=== PATIENT | female | born 1950 | race Caucasian/White ===

== ENCOUNTER → 2021-01-02 15:18 | Outpatient (CLI) | payer MEDICARE, OTHER, SELFPAY ==
[2021-01-02] MEDS: DENOSUMAB 60 MG/ML SC (15:41)
== END ==
PROVIDERS: Referring Provider Internal Medicine Endocrinology, Diabetes & Metabolism; Visit Provider Internal Medicine Endocrinology, Diabetes & Metabolism
DX: M81.8 Other osteoporosis without current pathological fracture (principal)
CPT/HCPCS: 96372; J0897

== ENCOUNTER → 2021-07-28 | Outpatient (CLI) | payer MEDICARE, OTHER, SELFPAY ==
[2021-07-28 13:46] VITALS: RESP 16
[2021-07-28] MEDS: DENOSUMAB 60 MG/ML SC (13:48)
== END | disposition home or self-care (01) ==
LOC: MEDOUTP 13:37
PROVIDERS: Referring Provider Internal Medicine Endocrinology, Diabetes & Metabolism; Visit Provider Internal Medicine Endocrinology, Diabetes & Metabolism
DX: M81.8 Other osteoporosis without current pathological fracture (principal)
CPT/HCPCS: 96372; J0897

== ENCOUNTER → 2022-02-09 | Outpatient (CLI) | payer MEDICARE, OTHER, SELFPAY ==
[2022-02-09] MEDS: DENOSUMAB 60 MG/ML SC (11:57)
--- NOTE | 2022-02-09 12:01 | NURSING ---
Patient refused vital signs to be obtained prior to prolia injection. States it will be charged more as a wellness visit and does not want her vital signs obtained.
== END | disposition home or self-care (01) ==
LOC: MEDOUTP 11:38
PROVIDERS: Referring Provider Internal Medicine Endocrinology, Diabetes & Metabolism; Visit Provider Internal Medicine Endocrinology, Diabetes & Metabolism
DX: M81.8 Other osteoporosis without current pathological fracture (principal)
CPT/HCPCS: 96372; J0897

== ENCOUNTER 2022-08-23 13:55 | Outpatient (CLI) | payer MEDICARE, OTHER, SELFPAY ==
[2022-08-23 14:07] VITALS: BMI 21.5
[2022-08-23] MEDS: DENOSUMAB 60 MG/ML SC (14:13)
== END 2022-08-23 13:56 | disposition home or self-care (01) ==
LOC: MEDOUTP 13:57
PROVIDERS: Referring Provider Internal Medicine Endocrinology, Diabetes & Metabolism; Visit Provider Internal Medicine Endocrinology, Diabetes & Metabolism
DX: M81.8 Other osteoporosis without current pathological fracture (principal)
CPT/HCPCS: 96372; J0897

== ENCOUNTER 2023-04-22 12:56 | Outpatient (CLI) | payer MEDICARE, OTHER, SELFPAY ==
--- OUTSIDE RECORDS SUMMARY | 2023-04-22 13:21 | XMS RPT_ITS | CCD ---
Author Name Unknown Address [address] [place] [address] Organization [facility] Care Team Providers Care Blocker Polishing Name Role Phone Holli Reza Primary Care Provider HOLLI REZA Primary Care Unavailable HOLLI REZA Primary Care Unavailable SIM MCKENZIE Attending Unavailable HOLLI REZA Primary Care Unavailable HOLLI REZA Primary Care Unavailable HOLLI REZA Primary Care Unavailable Allergies Allergy Classification Reported Allergen(s) Allergy Type Date of Onset Reaction(s) Facility (14 sources) Acetaminophen; Translations: [ACETAMINOPHEN] Drug Allergy 06-23-19 14 [place], [place] (14 sources) carvedilol; Translations: [CARVEDILOL] Drug Allergy 06-13-19 15 [place] (1 source) Cephalothin Drug Allergy 08-04-19 17 [place] (14 sources) chlorproMAZINE; Translations: [CHLORPROMAZINE] Drug Allergy 08-04-19 17 [place] (1 source) metroNIDAZOLE Drug Allergy 06-13-19 15 [place] (2 sources) Penicillins; Translations: [PENICILLINS] Propensity to adverse reactions to drug 09-11-19 06 [place] (14 sources) Promethazine; Translations: [PROMETHAZINE HCL] Drug Allergy 04-30-19 16 Other (See Comments), Unknown [place] (1 source) Sulfamethoxazole / Trimethoprim Drug Allergy 12-07-19 18 [place] (13 sources) Cephalothin; Translations: [KEFLIN] Drug Allergy 08-04-19 17 [facility] (13 sources) metroNIDAZOLE; Translations: [METRONIDAZOLE HCL] Drug Allergy 06-13-19 15 [facility] (13 sources) nebivolol; Translations: [NEBIVOLOL] Drug Allergy 06-11-19 21 Swelling [facility] (2 sources) Penicillins Drug Intolerance 09-11-19 [facility] Work Phone: (10 sources) Penicillins Drug Intolerance 09-11-19 [facility] Work Phone: Medications Current Medications Medication Drug Class(es) Dates Sig (Normalized) Sig (Original) amLODIPine 10 mg oral tablet (1 source) Dihydropyridine Calcium Channel Rama Start: 07-13-2017 amLODIPine (NORVASC) 10 MG tablet Take 10 mg by mouth 0 07/13/2017 Active Calcium Citrate-Vitamin D3 1000-400 LIQD (1 source) Calcium Citrate-Vitamin D3 1000-400 LIQD 1 ml denosumab 60 mg/ml prefilled syringe (13 sources) RANK Ligand Inhibitor Start: 08-21-2020 End: 08-15-2021 denosumab 60 mg injection (PROLIA) Completed/Discontinued Medications Medication Drug Class(es) Dates Sig (Normalized) Sig (Original) CALCIUM CITRATE/VITAMIN D3 (CALCIUM CITRATE + ORAL) (12 sources) take 1 tablet by jerson th once daily CALCIUM CITRATE/VITAMIN D3 (CALCIUM CITRATE + ORAL) Take 1 tablet by mouth once daily. 0 Active Problems Active Problems Problem Classification Problem Date Documented Da te Episodic/Chronic Aortic; peripheral; and visceral artery aneurysms (12 sources) Aneurysm; Translations: [Aneurysm of unspecified site] Onset: 06-22-2013 06-22-2013 Chronic Chronic kidney disease (8 sources) Chronic kidney disease; Translations: [Chronic kidney disease, unspecified] Onset: 01-26-2022 Chronic Chronic kidney disease (1 source) Chronic kidney disease; Translations: [Chronic kidney disease (CKD) stage G3a/A1, moderately decreased glomerular filtration rate (GFR) between 45-59 mL/min/1.73 square meter and albuminuria creatinine ratio less than 30 mg/g (HCC)] Onset: 10-15-2022 Essential hypertension (20 sources) Benign essential hypertension; Translations: [Essential (primary) hypertension] Onset: 04-06-2017 Chronic Hypertension with complications and secondary hypertension (2 sources) Hypertensive heart AND renal disease; Translations: [Hypertensive heart and chronic kidney disease with heart failure and stage 1 through stage 4 chronic kidney disease, or unspecified chronic kidney disease] Onset: 04-05-2023 Chronic Nutritional deficiencies (2 sources) Vitamin D deficiency, unspecified; Translations: [Vitamin D deficiency] Onset: 10-15-2022 Chronic Osteoporosis (13 sources) Senile osteoporosis; Translations: [Age-related osteoporosis without current pathological fracture] Onset: 10-22-2015 10-22-2015 Chronic Other and ill-defined cerebrovascular disease (13 sources) Aneurysm of internal carotid artery; Translations: [Cerebral aneurysm, nonruptured] 08-03-2016 Chronic Other and ill-defined cerebrovascular disease (1 source) Cerebral aneurysm, nonruptured; Translations: [Aneurysm of internal carotid artery] Onset: 08-03-2016 Chronic Other and unspecified benign neoplasm (6 sources) Cerebral meningioma; Translations: [Benign neoplasm of cerebral meninges] 08-03-2016 Chronic Other and unspecified benign neoplasm (7 sources) Intracranial meningioma; Translations: [Benign neoplasm of cerebral meninges] Chronic Other endocrine disorders (1 source) Hyperparathyroidism , unspecified; Translations: [Hyperparathyroidis m, unspecified (HCC)] Onset: 10-15-2022 Chronic Other lower respiratory disease (1 source) Cough; Translations: [Acute cough] Episodic Other nervous system disorders (12 sources) Lesion of brain; Translations: [Disorder of brain, unspecified] Onset: 06-22-2013 06-22-2013 Chronic Other nervous system disorders (1 source) Personal history of benign neoplasm of the brain; Translations: [H/O meningioma of the brain] Onset: 04-05-2023 Episodic Other upper respiratory disease (1 source) Nasal congestion; Translations: [Nasal congestion] Episodic Other upper respiratory infections (1 source) Sore throat symptom; Translations: [Acute pharyngitis, unspecified] Episodic Thyroid disorders (17 sources) Hypothyroidism; Translations: [Hypothyroidism, unspecified] Onset: 11-18-2016 11-18-2016 Chronic Viral infection (1 source) COVID-19; Translations: [Positive self-administered antigen test for COVID-19] Past or Other Problems Problem Classification Problem Date Documented Da te Episodic/Chronic Other nutritional; endocrine; and metabolic disorders (2 sources) Body mass index 25-29 - overweight; Translations: [Body mass index (BMI) 25.0-25.9, adult] Onset: 07-25-2017 07-25-2017 Episodic Other nutritional; endocrine; and metabolic disorders (10 sources) Overweight in adulthood with body mass index of 25 or more but less than 30; Translations: [Body mass index (BMI) 25.0-25.9, adult] Onset: 07-25-2017 07-25-2017 Episodic Other nutritional; endocrine; and metabolic disorders (7 sources) H/O: thyroid disorder; Translations: [Personal history of other endocrine, nutritional and metabolic disease] Onset: 01-26-2022 Episodic Other nutritional; endocrine; and metabolic disorders (1 source) Personal history of other endocrine, nutritional and metabolic disease; Translations: [H/O thyrotoxicosis] Onset: 01-26-2022 Episodic Residual codes; unclassified (12 sources) Body mass index 20-24 - normal; Translations: [Body mass index (BMI) 22.0-22.9, adult] Onset: 01-03-2018 01-03-2018 Episodic Results Test Name Value Interpretation Reference Range Facil ity Vital Signs Date Time Vital Sign Value Performing Clinician Faci lity 01-26-2022 13:00-0500 Body height 160 cm Sim Mckenzie MD Work Phone: [facility] 01-26-2022 13:00-0500 Body weight 52.62 kg Sim Mckenzie MD Work Phone: [facility] 01-26-2022 13:00-0500 Diastolic blood pressure 98 mm[Hg] Sim Mckenzie MD Work Phone: [facility] 01-26-2022 13:00-0500 Heart rate 76 /min Sim Mckenzie MD Work Phone: [facility] 01-26-2022 13:00-0500 SaO2% (BldA) [Mass fraction] 99 % Sim Mckenzie MD Work Phone: [facility] 01-26-2022 13:00-0500 Systolic blood pressure 183 mm[Hg] Sim Mckenzie MD Work Phone: [facility] Encounters Encounter Date Encounter Type Care Provider Facility Start: 04-05-2023 End: 04-05-2023 ambulatory EDGRIFFIN J LIBIA Facility:[facility] Start: 01-12-2023 End: 01-13-2023 ambulatory EDWARD J LIBIA Facility:[facility] Start: 12-08-2022 End: 12-09-2022 ambulatory EDWARD J LIBIA [facility] Start: 11-05-2022 Telephone encounter Polly Broderick urology Procedures Date Procedure Procedure Detail Performing Clinician Start: 11-17-2021 Echo tthrc r-t 2d w/ wom-mode compl spec&colr d Sim Mckenzie MD Work Phone: Start: 10-20-2018 Us retroperitoneal r eal time w/image complete Mari M Ray Work Phone: Start: 07-03-2018 Mammography Polly dorantes Start: 07-28-2016 Adult depression scr eening assessment Sim Mckenzie MD Work Phone: Plan of Treatment Date Care Activity Detail Author Start: 10-26-2023 SERUM CREATININE SERUM CREATININE [facility] Start: 10-16-2023 HEMOGLOBIN/HEMATOCRIT HEMOGLOBIN/HEMATOCRIT [facility] Start: 03-22-2023 SERUM CREATININE SERUM CREATININE [facility] Start: 11-12-2022 Influenza vaccination INFLUENZA (#1) [facility] Start: 09-30-2022 HEMOGLOBIN/HEMATOCRIT HEMOGLOBIN/HEMATOCRIT [facility] Start: 09-30-2022 SERUM CREATININE SERUM CREATININE [facility] Start: 03-14-2022 ADVANCE DIRECTIVE DISCUSSION ADVANCE DIRECTIVE DISCUSSION [facility] Start: 03-14-2022 DEPRESSION ASSESSMENT DEPRESSION ASSESSMENT [facility] Start: 02-03-2022 DIABETES SCREEN DIABETES SCREEN [facility] Start: 11-12-2021 Influenza vaccination INFLUENZA (#1) [facility] Start: 05-09-2021 COVID-19 VACCINE (4 - Booster for Moderna series) COVID-19 VACCINE (4 - Booster for Moderna series) [facility] Start: 03-14-2021 ADVANCE DIRECTIVE DISCUSSION ADVANCE DIRECTIVE DISCUSSION [facility] Start: 03-14-2021 DEPRESSION ASSESSMENT DEPRESSION ASSESSMENT [facility] Start: 03-03-2021 COVID-19 VACCINE (4 - Booster for Moderna series) COVID-19 VACCINE (4 - Booster for Moderna series) [facility] Start: 03-03-2021 COVID-19 VACCINE (4 - Moderna series) COVID-19 VACCINE (4 - Moderna series) [facility] Start: 07-03-2020 Breast cancer screen Breast cancer screen [place], [place] Start: 07-04-2019 Mammography MAMMOGRAM [facility] Start: 03-21-2019 End: 03-21-2019 Office Visit 03/21/2019 Office Visit Obstetrics and Gynecology Gala Byrnes MD [address] [place] [address] [address] [place] [address] [phone] [facility] [place] 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 Start: 11-12-2018 Influenza vaccination Flu vaccine (#1) [place] Start: 07-28-2017 Adult depression screening assessment DEPRESSION SCREENING [facility] Start: 09-13-2016 BONE DENSITY BONE DENSITY [facility] Start: 09-13-2016 DEXA (modify frequency per FRAX score) DEXA (modify frequency per FRAX score) [place] Start: 09-13-2016 Pneumococcal 65+ years Vaccine (1 of 2 - PCV13) Pneumococcal 65+ years Vaccine (1 of 2 - PCV13) [place] Start: 09-13-2016 PNEUMOCOCCAL: 65+ (1 - PCV) PNEUMOCOCCAL: 65+ (1 - PCV) [facility] Start: 09-13-2014 Annual Wellness Visit (AWV) Annual Wellness Visit (AWV) [place] Start: 09-13-2001 Colon cancer screen colonoscopy Colon cancer screen colonoscopy [place] Start: 09-13-2001 Shingles Vaccine (1 of 2) Shingles Vaccine (1 of 2) [place] Start: 09-13-2001 SHINGRIX VACCINE (1 of 2) SHINGRIX VACCINE (1 of 2) [facility] Start: 09-13-1996 COLOGUARD (FIT-DNA) COLOGUARD (FIT-DNA) [facility] Start: 09-13-1996 Colonoscopy COLONOSCOPY [facility] Start: 09-13-1996 COLORECTAL CANCER SCREENING COLORECTAL CANCER SCREENING [facility] Start: 09-13-[address] COLONOGRAPHY [facility] Start: 09-13-1996 FECAL OCCULT BLOOD FECAL OCCULT BLOOD [facility] Start: 09-13-1996 LIPID SCREEN LIPID SCREEN [facility] Start: 09-13-1996 SIGMOIDOSCOPY SIGMOIDOSCOPY [facility] Start: 1991 Lipid screen Lipid screen [place] Start: 1991 Mammography MAMMOGRAM [facility] Start: 09-13-1970 DTaP/Tdap/Td vaccine (1 - Tdap) DTaP/Tdap/Td vaccine (1 - Tdap) [place] Start: 09-13-1970 Urine microalbumin profile DTAP,TDAP,TD (1 - Tdap) [facility] Start: 09-13-1969 ANNUAL PCP TEAM CHRONIC DISEASE VISIT ANNUAL PCP TEAM CHRONIC DISEASE VISIT [facility] Start: 09-13-1969 BP CONTROLLED (<130/80) BP CONTROLLED (<130/80) [facility] in Start: 09-13-1969 HEPATITIS C SCREENING HEPATITIS C SCREENING [facility] Start: 1950 Creatinine monitoring Creatinine monitoring [place], [place] Start: 1950 Hepatitis C screen Hepatitis C screen [place], [place] Start: 1950 Potassium monitoring Potassium monitoring [facility] Immunizations Immunization Date Immunization Notes Care Provider Rosalio brown 12-16-2021 influenza virus vacc ine, unspecified formulation Sim Mckenzie MD Work Phone: [facility] 12-08-2020 influenza virus vacc ine, unspecified formulation Sim Mckenzie MD Work Phone: [facility] 04-10-2020 COVID-19 vaccine, fu ll dose (MODERNA) Sim Mckenzie MD Work Phone: [facility] 03-13-2020 COVID-19 vaccine, fu ll dose (MODERNA) Sim Mckenzie MD Work Phone: [facility] 12-13-2017 influenza virus vacc sruthi, unspecified formulation Sim Mckenzie MD Work Phone: [facility] 12-15-2016 influenza virus vacc ine, unspecified formulation Sim Mckenzie MD Work Phone: [facility] 12-15-2015 influenza virus vacc ine, unspecified formulation Sim Mckenzie MD Work Phone: [facility] Payers Date Payer Category Payer Private Health Insurance [facility] xxxxxxxxx 2017-Present [phone] [address] [place] [address] xxxxxxxxx [id number] 2016 Medicare MEDICARE MEDICAR E PART A AND B xxxxxxxxxx 2016-Present [phone] [place] [address] xxxxxxxxxx [id number] 2016 Medicare MEDICARE MEDICAR E A AND B [id number] 2016-Present [phone] [place] [address] Medicare [id number] 2016 Medicare MEDICARE MEDICAR E A AND B [id number] 2016-Present [phone] [place] [address] Medicare [id number] 2016 Medicare [id number] 2016 Private Health Insurance [facility] [id number] 2016-Present [phone] [address] [address] [place] [address] Indemnity [id number] 2016 Private Health Insurance [facility] [id number] 2016-Present [phone] [address] [address] [place] [address] Susie [id number] 2016 Unknown [id number] Social History Date Type Detail Facility Start: 04-19-2018 End: 01-26-2022 Tobacco smoking status NHIS Former smoker [facility] End: 12-06-1997 History of tobacco use Current smoker [place] Start: 04-19-2018 End: 03-31-2022 Alcohol intake Yes [facility] Start: 1950 Sex Assigned At Not on file M [place], [place] History of tobacco use Cigarette Smoker [facility] Start: 06-10-2020 End: 01-26-2022 Alcohol intake Current drinker of alcohol (finding) [facility] Start: 06-05-2019 History SDOH Alcohol Frequency 3 [facility] Start: 06-05-2019 History SDOH Alcohol Std Drinks 1 [facility] Start: 07-18-2021 End: 01-26-2022 Exposure to SARS-CoV-2 (event) Not sure [facility] Start: 10-29-2015 End: 03-31-2022 Cigarettes smoked current (pack per day) - Reported 0.5 [facility] Start: 10-29-2015 End: 01-26-2022 Tobacco use and exposure Smokeless tobacco non-user [facility] Start: 01-26-2022 Tobacco Comment (Abstract info rmation on 04/30/2015) Never smoked; Tobacco reviewed with patient 01/29/2015 [facility] How often to you hav e a drink containing alcohol? 2-4 times a month [facility] How many standard drinks containing alcohol do you have on a typical day? 1 or 2 [facility] How often do you hav e 6 or more drinks on 1 occasion? Never [facility] National Score (1-10 0), lower number is lower risk 27 [facility] Clinical Notes 04-04-2017 to 04-05-2023 Telephone Encounter - Polly Borrego - 11/05/2022 10:23 AM EDTTelephone Encounter - Malinda Manzanares, Research Coordinator - 06/15/2022 12:56 PM EDTPatient InstructionsPatient Instructions Note Date & Type Note Facility 04-05-2023 Note HNO ID: [id number] Author: SIM MCKENZIE MD Service: ? Author Type: Physician Type: Progress Notes Filed: 04/05/2023 09:01 Note Text: This is a virtual visit using Bit[employer] video visit. It required patient-provider interaction for the medical decision making as documented below. Mrs Obando has a history of a brain mass that was diagnosed as a meningioma in the mid to late . She has been followed longitudinally , and has fortunately done well without complications from the same. 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 This was never told to her before and she thinks is a new finding. She is following up with Dr Kiarra Butterfield and Dr Stewart for the same. Around 2013, her BP control had deteriorated. She had numbers as high as 170-180s/100-110 mm Hg. She used to be on Losartan and this had to be stopped due to low GFR. Clinically, she only had one eipsode of unsteadiness, where she had to lean on a counter at work. Her colleagues at work saw her leaning and ran to her. She did not feel limb weakness/paresthesias, but felt unusual, like a train had zoomed past her. She otherwise denies chest pain, dyspnea, lower extremity edema or orthopnea. In terms of her antihypertensive therapy, I initially started her on Coreg. Unfortunately, she developed a rash from the same. She stopped taking it. I switched her to Bystolic 5 mg twice a day. Despite trying to take by Bystolic twice a day, her blood pressure accelerated in the afternoons to 170s to 180s systolic. I eventually changed her to Lopressor 25 mg twice a day. Eventually, I added Aldactone to her medical regimen. 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 In late September 2018, she developed significant elevation of her creatinine at 2.49 [address] She saw Dr. Mari Grey, and it was thought that her acute kidney injury was incited because of hypotension caused by marked antihypertensive medications. She was ordered some blood work including alpha, beta blockers , kappa lambda light chain levels. This was particularly important because she has a family history of multiple myeloma. She has some uncles and aunts that were diagnosed with the same. We ultimately decided to maintain her on her medical regimen with metoprolol, lisinopril, Aldactone. She has been on this regimen since 2019. She mentioned to me that she also had a discussion with Dr. Stewart , and he speculated that there may be a hormonal contribution from the meningioma itself, that could potentially escalate her blood pressures. In any case, she has been told that an excision surgery for the meningioma, would leave her with lower extremity deficits. She is absolutely reluctant to have brain surgery for this reason. The MRI of her brain from 08/01 revealed stable appearance of the areas of ossification within the falx, without new mass-effect. The 3 mm left internal carotid artery cavernous segment aneurysm reported on her previous MRAs was below the MRI brain imaging threshold on her study in 08/01. This is her follow-up visit today. She is doing well, and is using the gymnasium 3-4 times a week, walking at 3 miles /hr for 1.5 miles, for about 35 minutes. She has never checked her blood pressures after her workouts. Her blood pressures have been much better controlled. She has been getting readings in high 90's- low 100's/70's. Her heart rate shave been running in the 60's.She has not felt flushed in a while. She has been taking her metoprolol in the morning religiously. In the evenings, she takes her lisinopril. She sometimes skips a second dose of metoprolol, lisinopril in the evening, depending on her heart rates and blood pressures. She has had some numbers as low as 100/60 mmHg in the evenings. I reviewed her echocardiogram from 12/03 with her in detail today. Her LV ejection fraction was 59%, she had stage I diastolic dysfunction. She had normal right ventricular size, systolic function, without significant valvular abnormalities. She is on Farxiga 5 mg daily, and apparently there are plans to increase it to 10 mg daily. Her GFR hovers around 38-40 cc/min. She did have an attack of Shingles around 2022, and the pain lasted X 8 weeks. She mentioned that it was quite painful, despite her being vaccinated. HISTORY REVIEWED (electronic chart updated): PAST MEDICAL HISTORY PAST MEDICAL HISTORY Diagnosis Date Aneurysm of internal carotid artery 2.53 mm LICA aneurysm at C4 level Cerebral meningioma (HCC) Essential (primary) hypertension Exophthalmos, unspecified Hyperthyroidism Meningioma (HCC) Osteopenia Osteoporosis, senile Thyroiditis Thyrotoxic exophthalmos Unspecified essential hypertension Essential hypertension Unspecified hypothyroidism PAST SURGICAL (more content not included)... [facility] 11-05-2022 Miscellaneous Notes IRB [id number]. [facility] Brain Study ([facility]BS) Peoplesoft Consultant: Iram Salvador MD, , Dez Healy MD, Rubber Ball Finisher: Malinda Davis and Email:[email or web address] Left voicemail message to introduce the [facility] Brain Study (BS). Provided phone number, , for Sabrina Obando to contact Polly Borrego, to further discuss the study. Polly Borrego documented in this encounter [facility] 06-15-2022 Miscellaneous Notes IRB [id number]. [facility] Brain Study ([facility]BS) Peoplesoft Consultant: Iram Salvador MD, , Jose Burkett, PhD, , Dez Healy MD, Rubber Ball Finisher: Lidia Lawrence and Email: Spoke with Sabrina Obando to follow up about the [facility] Brain Study ([facility]BS): Biomarkers and Predictors of Neurological Disorders IRB [id number]. Malinda Manzanares, Research Coordinator scheduled Sabrina Obando for study on 08/15/22 at 430pm. Malinda Manzanares, Research Coordinator documented in this encounter [facility] 06-10-2022 Miscellaneous Notes IRB [id number]. [facility] Brain Study ([facility]BS) Peoplesoft Consultant: Iram Salvador MD, , Jose Burkett, PhD, , Dez Healy MD, Rubber Ball Finisher: Lidia Lawrence and Email:[email or web address] Left voicemail message to introduce the [facility] Brain Study (CCBS). Provided phone number, , for Sabrina Obando to contact Jaspal Hernandez, Research Coordinator, to further discuss the study. Jaspal Hernandez Research Coordinator documented in this encounter [facility] 06-08-2022 Miscellaneous Notes IRB [id number]. [facility] Brain Study ([facility]BS) Peoplesoft Consultant: Iram Salvador MD, , Jose Burkett, PhD, , Dez Healy MD, Rubber Ball Finisher: Lidia Lawrence and Email:[email or web address] Left voicemail message to introduce the [facility] Brain Study ([facility]BS). Provided phone number, , for Sabrina Obando to contact Jaspal Hernandez, Research Coordinator, to further discuss the study. Jaspal Hernandez Research Coordinator documented in this encounter [facility] 03-09-2022 Miscellaneous Notes Patient's request for medication is as follows: Requested Prescriptions Pending Prescriptions Disp Refills furosemide (LASIX) 20 mg tablet 90 tablet 3 Sig: Take 1 tablet by mouth once daily. Last seen 01/26/2022. Prescription(s) as above. Please process accordingly. Sara Dsouza LPN documented in this encounter [facility] 01-26-2022 Instructions Sim Mckenzie MD - 01/26/2022 1:36 PM EST High Blood Pressure: Care Instructions Overview It's normal for blood pressure to go up and down throughout the day. But if it stays up, you have high blood pressure. Another name for high blood pressure is hypertension. Despite what a lot of people think, high blood pressure usually doesn't cause headaches or make you feel dizzy or lightheaded. It usually has no symptoms. But it does increase your risk of stroke, heart attack, and other problems. You and your doctor will talk about your risks of these problems based on your blood pressure. Your doctor will give you a goal for your blood pressure. Your goal will be based on your health and your age. Lifestyle changes, such as eating healthy and being active, are always important to help lower blood pressure. You might also take medicine to reach your blood pressure goal. Follow-up care is a desouza part of your treatment and safety. Be sure to make and go to all appointments, and call your doctor if you are having problems. It's also a good idea to know your test results and keep a list of the medicines you take. How can you care for yourself at home? Medical treatment If you stop taking your medicine, your blood pressure will go back up. You may take one or more types of medicine to lower your blood pressure. Be safe with medicines. Take your medicine exactly as prescribed. Call your doctor if you think you are having a problem with your medicine. See your doctor regularly. You may need to see the doctor more often at first or until your blood pressure comes down. If you are taking blood pressure medicine, talk to your doctor before you take decongestants or anti-inflammatory medicine, such as ibuprofen. Some of these medicines can raise blood pressure. Learn how to check your blood pressure at home. Lifestyle changes Stay at a healthy weight. This is especially important if you put on weight around the waist. Losing even 10 pounds can help you lower your blood pressure. If your doctor recommends it, get more exercise. Walking is a good choice. Bit by bit, increase the amount you walk every day. Try for at least 30 minutes on most days of the week. You also may want to swim, bike, or do other activities. Avoid or limit alcohol. Talk to your doctor about whether you can drink any alcohol. Try to limit how much sodium you eat to less than 2,300 milligrams (mg) a day. Your doctor may ask you to try to eat less than 1,500 mg a day. Eat plenty of fruits (such as bananas and oranges), vegetables, legumes, whole grains, and low-fat dairy products. Lower the amount of saturated fat in your diet. Saturated fat is found in animal products such as milk, cheese, and meat. Limiting these foods may help you lose weight and also lower your risk for heart disease. Do not smoke. Smoking increases your risk for heart attack and stroke. If you need help quitting, talk to your doctor about stop-smoking programs and medicines. These can increase your chances of quitting for good. When should you call for help? Call 911 anytime you think you may need emergency care. This may mean having symptoms that suggest that your blood pressure is causing a serious heart or blood vessel problem. Your blood pressure may be over 180/120. For example, call 911 if: You have symptoms of a heart attack. These may include: ? Chest pain or pressure, or a strange feeling in the chest. ? Sweating. ? Shortness of breath. ? Nausea or vomiting. ? Pain, pressure, or a strange feeling in the back, neck, jaw, or upper belly or in one or both shoulders or arms. ? Lightheadedness or sudden weakness. ? A fast or irregular heartbeat. You have symptoms of a stroke. These may include: ? Sudden numbness, tingling, weakness, or loss of movement in your face, arm, or leg, especially on only one side of your body. ? Sudden vision changes. ? Sudden trouble speaking. ? Sudden confusion or trouble understanding simple statements. ? Sudden problems with walking or balance. ? A sudden, severe headache that is different from past headaches. You have severe back or belly pain. Do not wait until your blood pressure comes down on its own. Get help right away. Call your doctor now or seek immediate care if: Your blood pressure is much higher than normal (such as 180/120 or higher), but you don't have symptoms. You think high blood pressure is causing symptoms, such as: ? Severe headache. ? Blurry vision. Watch closely for changes in your health, and be sure to contact your doctor if: Your blood pressure measures higher than your doctor recommends at least 2 times. That means the top number is higher or the bottom number is higher, or both. You think you may be having side effects from your blood pressure medicine. Where can you learn more? Go to https://www.[employer].net/tom Forman. Enter X567 in the search box to learn more about High Blood Pressure: Care Instructions. Current as of: October 02, 2017 Content Version: [id number] [employer]. Care instructions adapted under license by your healthcare professional. If you have questions about a medical condition or this instruction, always ask your healthcare professional. [employer] disclaims any warranty or liability for your use of this information. documented in this encounter [facility] 01-26-2022 History of Present illness Narrative PRIMARY CARE PHYSICIAN: Holli Reza MD ([facility]) [address] [place] [address] CHIEF COMPLAINT: Patient presents with: Cardiology Follow Up : HTN HPI: Mrs Obando has a history of a brain mass that was diagnosed as a meningioma in the mid to late . She has been followed longitudinally , and has fortunately done well without complications from the same. 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 This was never told to her before and she thinks is a new finding. She is following up with Dr Kiarra Butterfield and Dr Stewart for the same. Around 2013, her BP control had deteriorated. She had numbers as high as 170-180s/100-110 mm Hg. She used to be on Losartan and this had to be stopped due to low GFR. Clinically, she only had one eipsode of unsteadiness, where she had to lean on a counter at work. Her colleagues at work saw her leaning and ran to her. She did not feel limb weakness/paresthesias, but felt unusual, like a train had zoomed past her. She otherwise denies chest pain, dyspnea, lower extremity edema or orthopnea. In terms of her antihypertensive therapy, I initially started her on Coreg. Unfortunately, she developed a rash from the same. She stopped taking it. I switched her to Bystolic 5 mg twice a day. Despite trying to take by Bystolic twice a day, her blood pressure accelerated in the afternoons to 170s to 180s systolic. I eventually changed her to Lopressor 25 mg twice a day. Eventually, I added Aldactone to her medical regimen. 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 In late September 2018, she developed significant elevation of her creatinine at 2.49 milligrams [address] She saw Dr. Mari Grey, and it was thought that her acute kidney injury was incited because of hypotension caused by marked antihypertensive medications. She was ordered some blood work including alpha, beta blockers , kappa lambda light chain levels. This was particularly important because she has a family history of multiple myeloma. She has some uncles and aunts that were diagnosed with the same. We ultimately decided to maintain her on her medical regimen with metoprolol, lisinopril, Aldactone. She has been on this regimen since 2018. She mentioned to me that she also had a discussion with Dr. Stewart , and he speculated that there may be a hormonal contribution from the meningioma itself, that could potentially escalate her blood pressures. In any case, she has been told that an excision surgery for the meningioma, would leave her with lower extremity deficits. She is absolutely reluctant to have brain surgery for this reason. The MRI of her brain from 08/01 revealed stable appearance of the areas of ossification within the falx, without new mass-effect. The 3 mm left internal carotid artery cavernous segment aneurysm reported on her previous MRAs was below the MRI brain imaging threshold on her study in 08/01. She returns for a follow-up visit today. She is due to get her last menstrual COVID-19 vaccine soon. She is vaccinated against influenza for the season. Clinically, she denies chest pain, shortness of breath, lightheadedness, dizziness or palpitations; but continues to have a flushed feeling when she is stressed. She has been taking her metoprolol in the morning religiously. In the evenings, she takes her lisinopril. She sometimes skips a second dose of metoprolol, lisinopril in the evening, depending on her heart rates and blood pressures. She has had some numbers as low as 100/60 mmHg in the evenings. She has seen some spikes up to 180s during the day when she is at work. 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 I reviewed her echocardiogram from 12/03 with her in detail today. Her LV ejection fraction was 59%, she had stage I diastolic dysfunction. She had normal right ventricular size, systolic function, without significant valvular abnormalities. PAST MEDICAL HISTORY Diagnosis Date Aneurysm of internal carotid artery 2.53 mm LICA aneurysm at C4 level Cerebral meningioma (HCC) COVID 10/2021 Essential (primary) hypertension Exophthalmos, unspecified Hyperthyroidism Meningioma (HCC) Osteopenia Osteoporosis, senile Thyroiditis Thyrotoxic exophthalmos Unspecified essential hypertension Essential hypertension Unspecified hypothyroidism PAST SURGICAL HISTORY Procedure Laterality Date LIG/TRNSXJ FLP TUBE ABDL/VAG APPR UNI/BI Tubal ligation ORBITOTOMY W/O BONE FLAP W/RMVL BONE DCMPRN 03/15/97 & 06/20/97 RPR BLEPHAROPTOSIS FRONTALIS MUSC SUTR/OTH MATRL 10/14/97 TONSILLECTOMY PRIMARY/SECONDARY <AGE 13 Tonsillectomy SOCIAL HISTORY: Social History Tobacco Use Smoking status: Former Packs/day: 0.50 Years: 20.00 Pack years: 10.00 Types: Cigarettes Smokeless tobacco: Never Tobacco comments: (Abstract information on 04/30/2015) Never smoked; Tobacco reviewed with patient 01/29/2015 Vaping Use Vaping Use: Never used Substance Use Topics Alcohol use: Yes Comment: Non drinker. Comment: occasional wine Drug use: No Comment: No reported history. FAMILY HISTORY Problem Relation Age of Onset other (parkinson's) Mother with dementia other (CABG) Mother 67 Mother had CABG X 2, first one at 67 yrs of age Cancer Father of bone cancer at age 83 other (pituitary tumor) Sister other (brain tumor) Maternal Aunt meningioma other (brain tumor) Other two maternal cousins with brain tumors diagnosed in their teens Developmental problem Other maternal nephew with borderline autism Coronary Artery Disease Other ALLERGIES: ALLERGIES Allergen Reactions Penicillins Rash Bystolic [Nebivolol] Swelling Coreg [Carvedilol] Rash Flagyl [Metronidazo* Rash Keflin Rash Phenergan [Prometha* Unknown Thorazine [Chlorpro* Rash Tylenol [Acetaminop* Rash MEDICATIONS: FARXIGA 5 mg tablet^^Disp: ^Rfl: furosemide (LASIX) 20 mg tablet^TAKE 1 TABLET ONCE DAILY^Disp: 90 tablet^Rfl: 1 lisinopril (ZESTRIL, PRINIVIL) 5 mg tablet^Take 1 tablet by mouth once daily as needed. 1 tablet p.o. as needed for systolic blood pressure greater than 140mmHg^Disp: 90 tablet^Rfl: 3 denosumab (PROLIA) 60 mg/mL^Inject 60 mg subcutaneously once every 6 months. ^Disp: ^Rfl: metoprolol tartrate, short acting, (LOPRESSOR) 25 mg tablet^Take 1 tablet by mouth twice daily.^Disp: 180 tablet^Rfl: 3 spironolactone (ALDACTONE) 25 mg tablet^Take 1 tablet by mouth once daily.^Disp: 90 tablet^Rfl: 3 (Patient taking differently: Take 25 mg by mouth three times a week.) levothyroxine (SYNTHROID) 75 mcg tablet^TAKE 1 TABLET ONCE DAILY. TAKE 1 AND 1/2 TABLETS ON TUESDAY^Disp: 30 tablet^Rfl: 1 CALCIUM CITRATE/VITAMIN D3 (CALCIUM CITRATE + ORAL)^Take 1 tablet by mouth once daily. ^Disp: ^Rfl: lisinopril (ZESTRIL, PRINIVIL) 10 mg tablet^Take 1 tablet by mouth once daily.^Disp: 180 tablet^Rfl: 3 REVIEW OF SYSTEMS: GENERAL: Negative for:Weight loss and Weight gain HEENT: Negative for:Nosebleeds RESPIRATORY: Negative for:Shortness of breath GASTROINTESTINAL: Negative for:Blood in stool MUSCULOSKELETAL: Negtive for: Muscle or joint pain, stiffness, Joint swelling SKIN: No rash HEMATOLOGICAL/LYMPHATIC: Negative for: Easy bruising and Easy bleeding CARDIOVASCULAR: As stated in HPI. Otherwise normal PHYSICAL EXAMINATION: BP 183/98 (BP Site: Left Arm, BP Position: Sitting, BP Cuff Size: Regular Adult) Pulse 76 Ht 5' 3 (1.6 m) Wt 116 lb (52.6 kg) SpO2 99% BMI 20.55 kg/m General: Well appearing, in no acute distress, speaking in complete sentences., Well appearing. Skin: No rash, bruising Oropharynx: Mucous membranes normal Neck: no jugular venous distention, no carotid bruits, Lungs: Clear to auscultation bilaterally, no wheezing or rhonchi. Heart: S1, S2 normal, no gallops or murmur Extremities: No peripheral edema Neuro: Grossly nonfocal Eyes: Mild exophthalmos ASSESSMENT/PLAN: 1. Essential (primary) hypertension - ICD9: 401.9, ICD10: I10 (primary diagnosis) - poor control based on office readings, but she has white coat hypertension. Her home readings have been in the range of 110s to 130s over 70s. She has been hypertensive on several occasions in the office. She clearly does not have end organ damage including congestive heart failure, worsening left ventricular hypertrophy, increase in the size of her external carotid artery aneurysm. She did have some renal dysfunction, but this was thought to be secondary to hypotension from antihypertensive medications. The function improved significantly, after we backed off on antihypertensive therapy. In the past, we have verified her blood pressure instrument against our office instrument, and they have correlated with each other in terms of the readings. As described above, she has been taking her lisinopril. She was taken off Aldactone by . She has now established care with Dr. Jimenez. I emphasized the need for monitoring her basal metabolic panel on a regular basis. If her systolic blood pressures cross 140 mmHg, I may ask her to go back on Aldactone, if this is okay with Dr. Jimenez. Her echocardiograms have not revealed any evidence of significant hypertensive heart disease. Her CT of the abdomen was negative for renal artery stenosis. I also asked her to work on relaxation exercise and try to cut back her schedule, so that she is not exposed to significant work stress. - Recommended regular aerobic exercise. - Recommend home blood pressure monitoring, to bring results in on next visit - Goal of BP <130/80 - I asked her to change the timing of her antihypertensive medications, and take the second dose of lisinopril at noon time, as opposed to the evening. She mentioned that her blood pressures tend to be in the low 100s in the evenings, and she often skips her evening dose of lisinopril, metoprolol. 2. Cerebral aneurysm - ICD9: 437.3, ICD10: I67.1 She was diagnosed to be having a 2.5-3 mm LICA aneurysm at C4 level . This was stable based on her last MRA in 10/28. Risk factor modification. Aggressive BP & lipid control. Regular lipid panels with Dr Solorio. Continue follow-up with Dr. Stewart . She is due for an MRA in early 2022 3. Unspecified hypothyroidism - ICD9: 244.9, ICD10: E03.9 - She has a previous history of thyrotoxicosis. She is status post palpebral surgery. She currently takes Synthroid. Instructed patient on importance of taking on an empty stomach either first thing in the morning or at bedtime. I also asked her to make sure that she does not have subclinical hyperthyroidism, as this could also predispose her to developing hypertension. She follows up regularly with Dr. Solorio 4. History of meningioma - ICD9: V13.89, ICD10: Z86.018 This was stable based on her last cerebral imaging. Continue to follow-up with neurology at [facility] [place] 5. History of thyrotoxicosis - ICD9: V12.29, ICD10: Z86.39 Apparently this is stable now. 6. Chronic kidney disease- I 10: N 18.9 She was found to have slightly elevated serum IgM, and Light Chains. Her kappa Lambda Chain Ratio Was 1.5. Per discussion with Dr. Grey, hematology, she did not meet criteria for multiple myeloma. Continue follow-up with Dr. Jimenez. For now, our thinking is that her acute kidney injury was brought on by hypotension. We are careful to not drop her blood pressure too much anymore. As described above, her hypertension appears to be white coat hypertension. She does not have significant end organ damage. Continue follow-up with Dr. Grey. I also briefly discussed amyloid with her, but I do not believe she has this based on her lab work yet. There are no Patient Instructions on file for this visit. I spent a total of 18 minutes on the date of the service which included oeaa-cu-egka patient care Sim Mckenzie MD The above note was partially created using a dictation recognition software. A reasonable attempt has been made to correct any errors. I have confirmed and edited as necessary, the Past, Family, Social History and Review Of Systems, obtained by my office staff. Elements of history of present illness, assessment , and plan were copied from my last office notes dated 05/21/20, 03/17/21; but have been updated where appropriate; and all reflect current medical decision making from TODAY, 01/26/2022 . Physical exam listed was also completed in entirety today and is unchanged from my last office note dated above, except where noted. Medical Decision Making: Problems: Moderate: 2+ stable chronic illnesses Data: Unique source(s) for external note(s) reviewed: 1 Unique test result(s) reviewed: 1 Risk: Moderate: Moderate risk from testing/treatment Medical Decision Making Level: 4 - Moderate documented in this encounter [facility] 01-26-2022 Nurse Note No cardiac concerns today documented in this encounter [facility] 11-20-2021 Miscellaneous Notes Spoke with pt about test results. Pt verbalizes understanding. Sara Dsouza LPN Left message for to call [facility] for test results. [facility] phone number provided. Anne Stevens LPN Left message for to call [facility] for test results. [facility] phone number provided. Anne Stevens LPN NOrmal LV and RV functions . Pulmonary pressures are not significantly elevated. Age appropriate valve findings. Bienvenido Mckenzie. documented in this encounter [facility] 10-23-2021 Tawny Marin APRN.COAL GRADER - 10/23/2021 2:34 PM EDT FACT SHEET FOR PATIENTS, PARENTS, AND CAREGIVERS EMERGENCY USE AUTHORIZATION (EUA) OF TERRELL FOR CORONAVIRUS DISEASE 2019 (COVID-19) You are being given this Fact Sheet because your healthcare provider believes it is necessary to provide you with PAXLOVID for the treatment of rtwa-dj-dfutdstg coronavirus disease (COVID-19) caused by the SARS-CoV-2 virus. This Fact Sheet contains information to help you understand the risks and benefits of taking the PAXLOVID you have received or may receive. The [place].S. Food and Drug Administration (FDA) has issued an Emergency Use Authorization (EUA) to make PAXLOVID available during the COVID-19 pandemic (for more details about an EUA please see What is an Emergency Use Authorization? at the end of this document). PAXLOVID is not an FDA-approved medicine in the [place]. Read this Fact Sheet for information about PAXLOVID. Talk to your healthcare provider about your options or if you have any questions. It is your choice to take PAXLOVID. What is COVID-19? COVID-19 is caused by a virus called a coronavirus. You can get COVID-19 through close contact with another person who has the virus. COVID-19 illnesses have ranged from very mtbb-of-fgwuix, including illness resulting in . While information so far suggests that most COVID-19 illness is mild, serious illness can happen and may cause some of your other medical conditions to become worse. Older people and people of all ages with severe, long lasting (chronic) medical conditions like heart disease, lung disease, and diabetes, for example seem to be at higher risk of being hospitalized for COVID-19. What is PAXLOVID? PAXLOVID is an investigational medicine used to treat sxpq-kq-eolrqfud COVID-19 in adults and children [12 years of age and older weighing at least 88 pounds (40 kg)] with positive results of direct SARS-CoV-2 viral testing, and who are at high risk for progression to severe COVID-19, including hospitalization or . PAXLOVID is investigational because it is still being studied. There is limited information about the safety and effectiveness of using PAXLOVID to treat people with zoot-ya-etbsfmrx COVID-19. The FDA has authorized the emergency use of PAXLOVID for the treatment of irkc-sl-visilodt COVID-19 in adults and children [12 years of age and older weighing at least 88 pounds (40 kg)] with a positive test for the virus that causes COVID-19, and who are at high risk for progression to severe COVID-19, including hospitalization or , under an EUA. 1 Revised: 29 May 2021 What should I tell my healthcare provider before I take PAXLOVID? Tell your healthcare provider if you: Have any allergies Have liver or kidney disease Are or plan to become Are a child Have any serious illnesses Tell your healthcare provider about all the medicines you take, including prescription and iiyy-vio-ategpnz medicines, vitamins, and herbal supplements. Some medicines may interact with PAXLOVID and may cause serious side effects. Keep a list of your medicines to show your healthcare provider and pharmacist when you get a new medicine. You can ask your healthcare provider or pharmacist for a list of medicines that interact with PAXLOVID. Do not start taking a new medicine without telling your healthcare provider. Your healthcare provider can tell you if it is safe to take PAXLOVID with other medicines. Tell your healthcare provider if you are taking combined hormonal contraceptive. PAXLOVID may affect how your control pills work. Females who are able to become should use another effective alternative form of contraception or an additional barrier method of contraception. Talk to your healthcare provider if you have any questions about contraceptive methods that might be right for you. How do I take PAXLOVID? PAXLOVID consists of 2 medicines: nirmatrelvir and ritonavir. Take 2 pink tablets of nirmatrelvir with 1 white tablet of ritonavir by mouth 2 times each day (in the morning and in the evening) for 5 days. For each dose, take all 3 tablets at the same time. If you have kidney disease, talk to your healthcare provider. You may need a different dose. Swallow the tablets whole. Do not chew, break, or crush the tablets. Take PAXLOVID with or without food. Do not stop taking PAXLOVID without talking to your healthcare provider, even if you feel better. If you miss a dose of PAXLOVID within 8 hours of the time it is usually taken, take it as soon as you remember. If you miss a dose by more than 8 hours, skip the missed dose and take the next dose at your regular time. Do not take 2 doses of PAXLOVID at the same time. If you take too much PAXLOVID, call your healthcare provider or go to the nearest hospital emergency room right away. If you are taking a ritonavir-or cobicistat-containing medicine to treat hepatitis C or Human Immunodeficiency Virus (HIV), you should continue to take your medicine as prescribed by your healthcare provider. Talk to your healthcare provider if you do not feel better or if you feel worse after 5 days. Who should generally not take PAXLOVID? Do not take PAXLOVID if: You are allergic to nirmatrelvir, ritonavir, or any of the ingredients in PAXLOVID You are taking any of the following medicines: Alfuzosin Pethidine, propoxyphene Ranolazine Amiodarone, dronedarone, flecainide, propafenone, quinidine Colchicine Lurasidone, pimozide, clozapine Dihydroergotamine, ergotamine, methylergonovine Lovastatin, simvastatin Sildenafil (Revatio ) for pulmonary arterial hypertension (PAH) Triazolam, oral midazolam Apalutamide Carbamazepine, phenobarbital, phenytoin Rifampin Geetha s Wort (hypericum perforatum) Taking PAXLOVID with these medicines may cause serious or life-threatening side effects or affect how PAXLOVID works. These are not the only medicines that may cause serious side effects if taken with PAXLOVID. PAXLOVID may increase or decrease the levels of multiple other medicines. It is very important to tell your healthcare provider about all of the medicines you are taking because additional laboratory tests or changes in the dose of your other medicines may be necessary while you are taking PAXLOVID. Your healthcare provider may also tell you about specific symptoms to watch out for that may indicate that you need to stop or decrease the dose of some of your other medicines. What are the important possible side effects of PAXLOVID? Possible side effects of PAXLOVID are: Allergic Reactions. Allergic reactions can happen in people taking PAXLOVID, even after only 1 dose. Stop taking PAXLOVID and call your healthcare provider right away if you get any of the following symptoms of an allergic reaction: hives trouble swallowing or breathing swelling of the mouth, lips, or face throat tightness hoarseness skin rash Liver Problems. Tell your healthcare provider right away if you have any of these signs and symptoms of liver problems: loss of appetite, yellowing of your skin and the whites of eyes (jaundice), dark-colored urine, pale colored stools and itchy skin, stomach area (abdominal) pain. Resistance to HIV Medicines. If you have untreated HIV infection, PAXLOVID may lead to some HIV medicines not working as well in the future. Other possible side effects include: altered sense of taste diarrhea high blood pressure muscle aches These are not all the possible side effects of PAXLOVID. Not many people have taken PAXLOVID. Serious and unexpected side effects may happen. PAXLOVID is still being studied, so it is possible that all of the risks are not known at this time. What other treatment choices are there? Veklury (remdesivir) is FDA-approved for the treatment of ollf-zb-ddzycdca COVID-19 in certain adults and children. Talk with your doctor to see if Veklury is appropriate for you. Like PAXLOVID, FDA may also allow for the emergency use of other medicines to treat people with COVID-19. Go to https://www.fda.gov/emergency-pre paredness-andresponse/mcm-legal-r dlccgjtxt-hla-cxandm-framework/em mzicowr-idf-qfubwcihjjxsn for information on the emergency use of other medicines that are authorized by FDA to treat people with COVID-19. Your healthcare provider may talk with you about clinical trials for which you may be eligible. It is your choice to be treated or not to be treated with PAXLOVID. Should you decide not to receive it or for your child not to receive it, it will not change your standard medical care. What if I am or ? There is director non profit treating women or mothers with PAXLOVID. For a mother and unborn baby, the benefit of taking PAXLOVID may be greater than the risk from the treatment. If you are , discuss your options and specific situation with your healthcare provider. It is recommended that you use effective barrier contraception or do not have sexual activity while taking PAXLOVID. If you are , discuss your options and specific situation with your healthcare provider. How do I report side effects with PAXLOVID? Contact your healthcare provider if you have any side effects that bother you or do not go away. Report side effects to FDA MedWatch at www.fda.gov/medwatch or call 2-361-DCN7875 or you can report side effects to [employer]. at the contact information provided below. Website Fax number Telephone number www.Intellijoule How should I store PAXLOVID? Store PAXLOVID tablets at room temperature, between 68?F to 77?F (20?C to 25?C). How can I learn more about COVID-19? Ask your healthcare provider. Visit https://www.cdc.gov/COVID19. Contact your local or state public health department. What is an Emergency Use Authorization (EUA)? The [place] FDA has made PAXLOVID available under an emergency access mechanism called an Emergency Use Authorization (EUA). The EUA is supported by a [place] of Health and Human Service (HHS) declaration that circumstances exist to justify the emergency use of drugs and biological products during the COVID-19 pandemic. PAXLOVID for the treatment of pvph-br-qboxahqs COVID-19 in adults and children [12 years of age and older weighing at least 88 pounds (40 kg)] with positive results of direct SARS-CoV-2 viral testing, and who are at high risk for progression to severe COVID-19, including hospitalization or , has not undergone the same type of review as an FDA-approved product. In issuing an EUA under the COVID-19 public health emergency, the FDA has determined, among other things, that based on the total amount of scientific evidence available including data from adequate and well-controlled clinical trials, if available, it is reasonable to believe that the product may be effective for diagnosing, treating, or preventing COVID-19, or a serious or life-threatening disease or condition caused by COVID-19; that the known and potential benefits of the product, when used to diagnose, treat, or prevent such disease or condition, outweigh the known and potential risks of such product; and that there are no adequate, approved, and available alternatives. All of these criteria must be met to allow for the product to be used in the treatment of patients during the COVID-19 pandemic. The EUA for PAXLOVID is in effect for the duration of the COVID-19 declaration justifying emergency use of this product, unless terminated or revoked (after which the products may no longer be used under the EUA). Additional Information For general questions, visit the website or call the telephone number provided below. Website Telephone number [email or web address] (3-527-E43-REZA) You can also go to www.Sovi or call for more information. Pfizer Distributed by [employer] [place] [address] [id number] Revised: 29 May 2021 documented in this encounter [facility] 10-23-2021 History of Present illness Narrative Images from the original note were not included. Telemedicine Evaluation for COVID-19 Infection Alternative video platform was used for evaluation of this patient. Location of patient: [facility] Sabrina Obando is a 71 year old female who presents with 3 days of symptoms that are stable. Symptoms include: Fever (?100.4F): No or Chills: No Cough: Yes Shortness of breath: No or Difficulty breathing: No Fatigue: No Muscle aches: No Headache: No New loss of smell or taste: No Sore throat: Yes Nasal congestion: Yes or Rhinorrhea: Yes Nausea: No or Vomiting: No Diarrhea: No Patient reports she tested positive for COVID, see picture below of test. OTC meds/remedies that patient has tried: OTC cold medicine. High risk category assessment Age > 60 years old Hypertension She reports that she has quit smoking. Her smoking use included cigarettes. She has a 10.00 pack-year smoking history. She has never used smokeless tobacco. OBJECTIVE VIDEO EXAM (if available) GENERAL: well appearing, alert, in no acute distress HEENT: no conjunctival injection, pupils equal and moist mucous membranes PULMONARY: breathing comfortably on room air , no coughing noted, and no wheezing noted ASSESSMENT/PLAN (U07.1) Positive self-administered antigen test for COVID-19 (primary encounter diagnosis) (R05.1) Acute cough (J02.9) Sore throat (R09.81, J34.89) Nasal congestion with rhinorrhea Appears to be mild COVID infection in patient with risk factors for complication. She would like to pursue anti-viral therapy with Paxlovid. 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 She is wondering if she would need to be renally doses and based on her last eGFR which was 47, told her yes. Recommended she continued symptomatic treatments as needed also. Roosevelt Marin APRN.COAL GRADER - Discussed symptom monitoring and supportive care - Red flag symptoms requiring follow up discussed This patient encounter involved the screening or treatment of novel coronavirus infection (COVID-19). Nirmatrelvir/Ritonavir (Paxlovid) Eligibility and Patient Discussion [facility] Formulary Restriction Criteria: Adult outpatients 18 years and older with ALL of the following: [x] Patient has positive SARS-COV-2 viral test (PCR or antigen test) during current illness [x] Patient has symptoms for 5 days or less [x] Not requiring hospitalization at any time for management of COVID-19 [x] Not requiring supplemental oxygen or a change in baseline supplemental oxygen [x] Not utilized for pre-exposure or post-exposure prophylaxis for prevention of COVID-19 [x] Patient does not have severe renal impairment (eGFR < 30 mL/min) or severe hepatic impairment (Child-Mclaughlin Class C) [] Meeting at least one of the criteria for high risk of progression to severe COVID-19: [x] Age over 65 years [] Cancer [] Chronic kidney disease [] Chronic liver disease [] Chronic lung diseases, including cystic fibrosis [] Dementia or other neurological conditions [] Diabetes (type 1 or type 2) [] Disabilities, including Down syndrome and neurodevelopmental disorders [x] Heart conditions [] HIV infection [] Immunocompromised state [] Mental health conditions [] Medical related technological dependence (tracheostomy, gastrostomy, or positive pressure ventilation (not related to COVID) [] Overweight and obesity (BMI greater or equal to 25 for adults) [] Physical inactivity [] [] Sickle cell disease or thalassemia [] Smoking, current or former [] Solid organ or blood stem cell transplant [] Stroke or cerebrovascular disease [] Substance use disorders [] Tuberculosis [] People from racial and ethnic minority groups Criteria above are met: Yes Date of Positive Test:10/23/2021 Date of Symptom Onset: 10/21/2021 Patient received COVID vaccine: Yes Drug-Drug interactions reviewed: Yes. No drug interactions were identified. I have discussed the use of the investigational therapeutic, nirmatrelvir/ritonavir, for the treatment of mild to moderate COVID-19 and its use under Emergency Use Authorization with the patient. The patient was informed that nirmatrelvir/ritonavir is not an FDA approved drug and that it is authorized for use under this Emergency Use Authorization. The patient was also informed of the significant known benefits and potential risks of nirmatrelvir/ritonavir, and the extent to which such potential risks and benefits are unknown. The patient was informed that there is mandatory reporting of all medication errors and serious adverse events potentially related to nirmatrelvir/ritonavir treatment within 7 calendar days from the onset of the event and that events up to 28 days after completion of therapy need to be reported. The discussion included alternatives to receiving nirmatrelvir/ritonavir, including clinical trials, and potential the risks and benefits of those alternatives. The patient was provided electronically with the Fact Sheet for Patients, Parents and Caregivers . The patient was also instructed that in addition to the treatment with nirmatrelvir/ritonavir, he/she should continue to self-isolate and use infection control measures (e.g., wear mask, isolate, social distance, avoid sharing personal items, clean and disinfect high touch surfaces, and frequent handwashing) according to CDC guidelines. The patient stated understanding and gave verbal consent to proceeding with nirmatrelvir/ritonavir treatment. Roosevelt Marin APRN.CNP October 23, 2021 2:35 PM documented in this encounter [facility] 09-03-2021 Miscellaneous Notes IRB [id number]. [facility] Brain Study (BS) Peoplesoft Consultant: Iram Salvador MD, , Jose Burkett, PhD, , Dez Healy MD, Rubber Ball Finisher: Lidia Lawrence and Email:[email or web address] Contacted Sabrina Obando by phone to discuss the [facility] Brain Study (CCBS): Biomarkers and Predictors of Neurological Disorders IRB [id number]. Sabrina Obando is interested and eligible for the study. Sabrina Obando will be placed on the waitlist to be contacted when an appointment spot becomes available. Elmer Aviles, Research Coordinator documented in this encounter [facility] 08-11-2021 Miscellaneous Notes Patient's request for medication is as follows: Pending Prescriptions Disp Refills FUROSEMIDE 20 MG TABLET 90 tablet 1 Sig: TAKE 1 TABLET ONCE DAILY RICH: Yes Last seen 03/17/2021. Prescription(s) as above. Please process accordingly. Anne Stevens LPN documented in this encounter [facility] documented as of this encounter (statuses as of 08/11/2021) [facility] History of Past illness Narrative* Problem Noted Date Resolved Date Hyperthyroidism 04/04/2017 documented as of this encounter (statuses as of 09/03/2021) [facility] History of Past illness Narrative* Problem Noted Date Resolved Date Hyperthyroidism 04/04/2017 documented as of this encounter (statuses as of 10/23/2021) [facility] History of Past illness Narrative* Problem Noted Date Resolved Date Hyperthyroidism 04/04/2017 documented as of this encounter (statuses as of 10/23/2021) [facility] History of Past illness Narrative* Problem Noted Date Resolved Date Hyperthyroidism 04/04/2017 documented as of this encounter (statuses as of 11/18/2021) [facility] History of Past illness Narrative* Problem Noted Date Resolved Date Hyperthyroidism 04/04/2017 documented as of this encounter (statuses as of 11/20/2021) [facility] History of Past illness Narrative* Problem Noted Date Resolved Date Hyperthyroidism 04/04/2017 documented as of this encounter (statuses as of 01/26/2022) [place] [address]-22-2018 History of Past illness Narrative* Problem Noted Date Resolved Date Hyperthyroidism 04/04/2017 documented as of this encounter (statuses as of 03/15/2022) [facility] History of Past illness Narrative* Problem Noted Date Resolved Date Hyperthyroidism 04/04/2017 documented as of this encounter (statuses as of 06/08/2022) [facility] History of Past illness Narrative* Problem Noted Date Resolved Date Hyperthyroidism 04/04/2017 documented as of this encounter (statuses as of 06/10/2022) [facility] History of Past illness Narrative* Problem Noted Date Resolved Date Hyperthyroidism 04/04/2017 documented as of this encounter (statuses as of 06/15/2022) [facility] History of Past illness Narrative* Problem Noted Date Diagnosed Date Resolved Date Hyperthyroidism 04/04/2017 documented as of this encounter (statuses as of 11/05/2022) [facility] Diagnosis Essential hypertension, benign [facility] Diagnosis Positive self-administered antigen test for COVID-19- Primary Acute cough Sore throat Acute pharyngitis Nasal congestion with rhinorrhea Other diseases of nasal cavity and sinuses [facility] Diagnosis Essential hypertension, benign Hypertensive heart and chronic kidney disease with heart failure and stage 1 through stage 4 chronic kidney disease, or unspecified chronic kidney disease (HCC) [facility] Diagnosis Essential hypertension- Primary Unspecified essential hypertension Aneurysm of internal carotid artery Cerebral aneurysm, nonruptured Cerebral meningioma (HCC) Benign neoplasm of cerebral meninges 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 Chronic kidney disease, unspecified CKD stage H/O thyrotoxicosis Personal history of other endocrine, metabolic, and immunity disorders [facility] Diagnosis Essential hypertension, benign [facility] Outpatient Procedure (Routine) - Closed Specialty Diagnoses / Procedures Referred By Catia t Referred [facility] Diagnoses Essential hypertension, benign Hypertensive heart and chronic kidney disease with heart failure and stage 1 through stage 4 chronic kidney disease, or unspecified chronic kidney disease (HCC) Procedures ECHO TTE W/DOPPLER, COMPLETE Sim Mckenzie MD [address] [place] [address] [facility] [place] [address] [place] [address] Referral ID Status Reason Start Date Expiration Date V isits Requested Visits Authorized [id number] Closed Auto-Generate d Referral 03/17/2021 03/17/2022 1 1 [facility] for visit Narrative* Outpatient Procedure (Routine) - Closed Specialty Diagnoses / Procedures Referred By Contac t Referred To Contact [facility] Diagnoses Essential hypertension, benign Hypertensive heart and chronic kidney disease with heart failure and stage 1 through stage 4 chronic kidney disease, or unspecified chronic kidney disease (HCC) Procedures ECHO TTE W/DOPPLER, COMPLETE Sim Mckenzie MD [address] [place] [address] [facility] [place] [address] [place] [address] Referral ID Status Reason Start Date Expiration Date V isits Requested Visits Authorized [id number] Closed Auto-Generate d Referral 03/17/2021 03/17/2022 1 1 [facility] Advance Directives No Advanced Directives Records FoundDocuments on File Type Date Recorded Patient Flamer After Lasting Expl anation Advance Directives and Living Will Power of Steam Tank Operator Summary Purpose Family History No Family History Records FoundNo Family History Records FoundNo Family History Records FoundNo Family History Records Found Additional Source Comments INFORMATION SOURCE (unrecogn ized section and content) DATE CREATED AUTHOR AUTHOR'S ORGANIZ ATION 08/22/2020 [facility] DATE CREATED AUTHOR AUTHOR'S ORGANIZ ATION 11/06/2022 [facility] DATE CREATED AUTHOR AUTHOR'S ORGANIZ ATION 04/06/2023 [facility] Source Comments (unrecognize d section and content) In the event this informatio n is protected by the Federal Confidentiality of Alcohol and Drug Abuse Patient Records regulations: The Federal rules restrict any use of the information to criminally investigate or prosecute any alcohol or drug abuse patient.[facility] the event this information is protected by the Federal Confidentiality of Alcohol and Drug Abuse Patient Records regulations: The Federal rules restrict any use of the information to criminally investigate or prosecute any alcohol or drug abuse patient.[facility] the event this information is protected by the Federal Confidentiality of Alcohol and Drug Abuse Patient Records regulations: The Federal rules restrict any use of the information to criminally investigate or prosecute any alcohol or drug abuse patient.[facility] the event this information is protected by the Federal Confidentiality of Alcohol and Drug Abuse Patient Records regulations: The Federal rules restrict any use of the information to criminally investigate or prosecute any alcohol or drug abuse patient.[facility] the event this information is protected by the Federal Confidentiality of Alcohol and Drug Abuse Patient Records regulations: The Federal rules restrict any use of the information to criminally investigate or prosecute any alcohol or drug abuse patient.[facility] the event this information is protected by the Federal Confidentiality of Alcohol and Drug Abuse Patient Records regulations: The Federal rules restrict any use of the information to criminally investigate or prosecute any alcohol or drug abuse patient.[facility] the event this information is protected by the Federal Confidentiality of Alcohol and Drug Abuse Patient Records regulations: The Federal rules restrict any use of the information to criminally investigate or prosecute any alcohol or drug abuse patient.[facility] the event this information is protected by the Federal Confidentiality of Alcohol and Drug Abuse Patient Records regulations: The Federal rules restrict any use of the information to criminally investigate or prosecute any alcohol or drug abuse patient.[facility] the event this information is protected by the Federal Confidentiality of Alcohol and Drug Abuse Patient Records regulations: The Federal rules restrict any use of the information to criminally investigate or prosecute any alcohol or drug abuse patient.[facility] the event this information is protected by the Federal Confidentiality of Alcohol and Drug Abuse Patient Records regulations: The Federal rules restrict any use of the information to criminally investigate or prosecute any alcohol or drug abuse patient.[facility] the event this information is protected by the Federal Confidentiality of Alcohol and Drug Abuse Patient Records regulations: The Federal rules restrict any use of the information to criminally investigate or prosecute any alcohol or drug abuse patient.[facility] the event this information is protected by the Federal Confidentiality of Alcohol and Drug Abuse Patient Records regulations: The Federal rules restrict any use of the information to criminally investigate or prosecute any alcohol or drug abuse patient.[facility] Reason for Visit (unrecogniz ed section and content) Reason Comments Returning Patient's Call IRB [id number] Reason Comments Cough Reason Comments Results Reason Comments Cardiology Follow Up HTN Reason Onset Date Comments Refill Request 03/09/2022 Reason Comments Appointment IRB [id number] Care Teams (unrecognized sec tion and content) Blocker Polishing Relationship Specialty Start Date End Date Holli Reza MD [address] [place] [address] PCP - General Family Practice 06/05/19 Blocker Polishing Relationship Specialty Start Date End Date Holli Reza MD [address] [place] [address] PCP - General Family Practice 06/05/19 Blocker Polishing Relationship Specialty Start Date End Date Holli Reza MD [address] [place] [address] PCP - General Family Practice 06/05/19 Blocker Polishing Relationship Specialty Start Date End Date Holli Reza MD [address] [place] [address] PCP - General Family Practice 06/05/19 Blocker Polishing Relationship Specialty Start Date End Date Holli Reza MD [address] [place] [address] PCP - General Family Practice 06/05/19 [employer] Relationship Specialty Start Date End Date Holli Reza MD [address] [place] [address] PCP - General Family Medicine 06/05/19 [employer] Relationship Specialty Start Date End Date Holli Reza MD [address] [place] [id number] PCP - General Family Medicine 06/05/19 [employer] Relationship Specialty Start Date End Date Holli Reza MD [address] [place] [address] PCP - General Family Medicine 06/05/19 [employer] Relationship Specialty Start Date End Date Holli Reza MD [address] [facility] [place] [address] PCP - General Family Medicine 06/05/19 [employer] Relationship Specialty Start Date End Date Holli Reza MD [address] [place] [facility] [place] [id number] PCP - General Family Medicine 06/05/19 FOR RECORDS PERTAINING TO PATIENTS WHO ARE OR HAVE BEEN ENROLLED IN A CHEMICAL DEPENDENCY/SUBSTANCEABUSE PROGRAM, SOME INFORMATION MAY BE OMITTED. This clinical summary was aggregated from multiple sources. Caution should be exercised in using it in the provision of clinical care. This summary normalizes information from multiple sources, and as a consequence, information in this document may materially change the coding, format and clinical context of patient data. In addition, data may be omitted in some cases. CLINICAL DECISIONS SHOULD BE BASED ON THE PRIMARY CLINICAL RECORDS. [employer] provides no warranty or guarantee of the accuracy or completeness of information in this document.
[2023-04-22 13:23] VITALS: BP 127/72; PULSE 78; RESP 16; TEMP 36.2; O2SAT 97; BMI 21.7
[2023-04-22] MEDS: DENOSUMAB 60 MG/ML SC (13:26)
== END 2023-04-22 12:57 | disposition home or self-care (01) ==
LOC: MEDOUTP 12:59
PROVIDERS: Referring Provider Internal Medicine Endocrinology, Diabetes & Metabolism; Visit Provider Internal Medicine Endocrinology, Diabetes & Metabolism
DX: M81.0 Age-related osteoporosis without current pathological fracture (principal)
CPT/HCPCS: 96372; J0897